=== PATIENT | male | born 1955 | race Caucasian/White ===

== ENCOUNTER 2019-04-17 08:43 | Outpatient (CLI) | payer MEDICARE ==
--- NOTE | 2019-04-17 09:22 | ULT ---
US Renal Bilateral STANDARD HISTORY: Chronic renal disease. COMPARISON: None. FINDINGS: Real-time imaging of the right and left kidneys were performed. These show normal-sized kid neys. Right kidney measures 11.7 the left kidney 11.6 cm. There is a 2.5 cm cyst involving the left kidney. There is a 1.6 cm parapelvic cyst involving the right kidney. The bladder is incompletely dis tended. IMPRESSION: Small bilateral renal cysts. No evidence of obstruction.
== END 2019-04-17 08:44 | disposition home or self-care (01) ==
LOC: SCSULT 08:43
PROVIDERS: ATTEND Internal Medicine Nephrology
DX: N18.3 Chronic kidney disease, stage 3 (moderate) (principal); N28.1 Cyst of kidney, acquired
CPT/HCPCS: 76770

== ENCOUNTER 2019-12-14 09:34 | Outpatient (CLI) | payer MEDICARE | END 2019-12-14 09:35 | disposition home or self-care (01) | LOC: CTENTCT 09:34 | PROVIDERS: ATTEND Otolaryngology Plastic Surgery within the Head & Neck | DX: J32.8 Other chronic sinusitis (principal) | CPT/HCPCS: 70486 ==